=== PATIENT | male | born 1965 | race Caucasian/White ===

== ENCOUNTER 2020-09-05 11:03 | Inpatient (IN) | payer OTHER ==
[2020-09-05] MEDS ORDERED: Sodium Chloride 0.9% 1000 ML 1,000 ML IV STA (11:10)
--- NOTE | 2020-09-05 11:10 | ERPHSYRPT ---
- History of Present Illness Time Seen by Provider: 09/05/20 11:10 Source: patient Exam Limitations: no limitations Physician History: This is a morbidly obese 54-year-old white male who is a diabetic and has history of hypertension and presents with symptoms of cough, shortness of air, diarrhea, myalgias and arthralgias and was exposed to individuals with positive COVID-19 test. Patient underwent a COVID-19 test approximately 1 week ago and found out this past Tuesday that his test was positive. His symptoms have not improved. In fact patient states that his cough and shortness of air have worsened. He does not have specific chest pain or abdominal pain. He has had no vomiting episodes. Cough Quality/Degree: moderate, dry cough Possible Cause: no prior episodes Modifying Factors: Improves With: coughing, deep breath Associated Symptoms: cough, muscle aches, shortness of breath Allergies/Adverse Reactions: vancomycin Allergy (Severe, Verified 09/05/20 11:48) blisters Home Medications: Hydrochlorothiazide 25 mg [hydroDIURIL 25 MG] 25 mg PO DAILY 04/05/17 [History] Quinapril HCl [Accupril] 40 mg PO DAILY 04/05/17 [History] Aspirin 81 gm Chew [Baby Aspirin 81 mg Chew] 1 tab PO DAILY 09/05/20 [History] Nebivolol HCl [Bystolic] 1 tab PO DAILY 09/05/20 [History] Travel Risk - International Travel Have you traveled outside of the country in past 3 weeks: No - Coronavirus Screening Are you exhibiting any of the following symptoms?: Yes Symptoms: Fever, Cough: New Onset, Shortness of Breath, Headaches/Body Aches/Fatigue Close contact with a COVID-19 positive Pt in past 14-21 Days: Yes - Review of Systems Constitutional: Fever Eyes: No Symptoms Ears, Nose, & Throat: No Symptoms Respiratory: Cough, Dyspnea Cardiac: No Symptoms Abdominal/Gastrointestinal: No Symptoms Genitourinary Symptoms: No Symptoms Musculoskeletal: Arthralgias, Myalgias Skin: No Symptoms Neurological: No Symptoms Psychological: No Symptoms Endocrine: No Symptoms Hematologic/Lymphatic: No Symptoms Immunological/Allergic: No Symptoms All Other Systems: Reviewed and Negative - Past Medical History Pertinent Past Medical History: Yes Neurological History: No Pertinent History ENT History: No Pertinent History Cardiac History: Hypertension Respiratory History: No Pertinent History Endocrine Medical History: No Pertinent History Musculoskeletal History: Osteoarthritis GI Medical History: No Pertinent History History: No Pertinent History Psycho-Social History: No Pertinent History Male Reproductive Disorders: No Pertinent History Other Medical History: SX HX: MENSICUS TEAR RIGHT KNEE 12 YEARS AGO. HX OF CELLULITIS AND LYMPHEDEMA - USES CIRCAID - Past Surgical History Past Surgical History: Yes Neuro Surgical History: No Pertinent History Cardiac: Cardiac Catheterization Respiratory: No Pertinent History Gastrointestinal: No Pertinent History Genitourinary: No Pertinent History Musculoskeletal: Orthopedic Surgery Male Surgical History: No Pertinent History Other Surgical History: R meniscus repair. - Social History Smoking Status: Never smoker How long have you smoked: never Exposure to second hand smoke: No Drug Use: none - Nursing Vital Signs Nursing Vital Signs: Initial Vital Signs Temperature 99.1 F 09/05/20 11:20 Pulse Rate 81 09/05/20 11:20 Respiratory Rate 22 09/05/20 11:20 Blood Pressure 155/77 09/05/20 11:20 O2 Sat by Pulse Oximetry 85 L 09/05/20 11:20 Pain Scale Pain Intensity 5 - Physical Exam General Appearance: mild distress, alert, anxiety, obese Eye Exam: PERRL/EOMI, eyes nml inspection Ears, Nose, Throat Exam: normal ENT inspection, moist mucous membranes Neck Exam: normal inspection, non-tender, supple, full range of motion Respiratory Exam: normal breath sounds, lungs clear, respiratory distress (Mild), airway intact, No chest tenderness Cardiovascular Exam: regular rate/rhythm, normal heart sounds Gastrointestinal/Abdomen Exam: soft, normal bowel sounds, No tenderness Rectal Exam: not done Back Exam: normal inspection, normal range of motion, No CVA tenderness, No vertebral tenderness Extremity Exam: normal inspection, normal range of motion, pelvis stable Neurologic Exam: alert, oriented x 3, cooperative, 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, normal mood/affect, nml cerebellar function, nml station & gait, sensation nml Skin Exam: normal color, warm, dry Lymphatic Exam: No adenopathy SpO2 Interpretation: normal O2 Delivery: Room Air - Course Nursing assessment & vital signs reviewed: Yes EKG Interpreted by Me: RATE (77), Sinus Rhythm, NORMAL AXIS, LAFB, NORMAL INTERVALS, NORMAL QRS, Other (No comparison EKG) Ordered Tests: Active Orders 24 hr Category Date Time Status EKG-ER Only STAT Care 09/05/20 11:10 Active IV Insertion STAT Care 09/05/20 11:10 Active Isolation, Initiate & Maintain STAT Care 09/05/20 11:11 Active Pulse Oximetry (ED) STAT Care 09/05/20 11:10 Active CHEST 1 VIEW (PORTABLE) Stat Exams 09/05/20 12:46 Taken BLOOD CULTURE Stat Lab 09/05/20 11:50 Received CBC W DIFF Stat Lab 09/05/20 11:35 Completed CMP Stat Lab 09/05/20 11:35 Completed D-DIMER QUANTITATIVE Stat Lab 09/05/20 13:22 Ordered INFLUENZA A+B YULIA Stat Lab 09/05/20 11:50 Completed Lactic Acid Stat Lab 09/05/20 11:10 Completed [place] Screen Stat Lab 09/05/20 11:35 Completed TROPONIN Q3H Lab 09/05/20 11:50 Completed TROPONIN Q3H Lab 09/05/20 14:15 Ordered TROPONIN Q3H Lab 09/05/20 17:15 Ordered TROPONIN Q3H Lab 09/05/20 20:15 Ordered TROPONIN Q3H Lab 09/05/20 23:15 Ordered Transfer Order Routine Transfer 09/05/20 Ordered Medication Summary Discontinued Medications Generic Name Dose Route Start Last Admin Trade Name Freq PRN Reason Stop Dose Admin Hydrocodone Bitart/Acetaminophen 15 ml 09/05/20 12:19 09/05/20 12:32 Hydrocodone-Acetamin 2.5-108/5 Ml Solution PO 09/05/20 12:20 15 ml STAT STA Administration Hydrocodone Bitart/Acetaminophen Confirm 09/05/20 12:31 Hydrocodone-Acetamin 2.5-108/5 Ml Solution Administered 09/05/20 12:32 Dose 15 ml .ROUTE .STK-MED ONE Dexamethasone Sodium Phosphate 8 mg 09/05/20 12:19 09/05/20 12:32 Decadron 4 Mg Inj IV 09/05/20 12:20 8 mg STAT ONE Administration Dexamethasone Sodium Phosphate Confirm 09/05/20 12:31 Decadron 4 Mg Inj Administered 09/05/20 12:32 Dose 8 mg .ROUTE .STK-MED ONE Sodium Chloride 1,000 mls @ 999 mls/hr 09/05/20 11:10 09/05/20 12:43 Sodium Chloride 0.9% 1000 Ml IV 09/05/20 12:10 Infused .Q1H1M STA Infusion Sodium Chloride Confirm 09/05/20 11:16 Sodium Chloride 0.9% 1000 Ml Administered 09/05/20 11:17 Dose 1,000 mls @ .ROUTE .[facility]-MED ONE Lab/Rad Data: Laboratory Result Diagrams 09/05/20 11:35 09/05/20 11:35 Laboratory Results 09/05/20 09/05/20 09/05/20 Range/Units 11:50 11:50 11:35 WBC (4.0-10.5) K/mm3 RBC (4.1-5.6) M/mm3 Hgb (12.5-18.0) gm/dl Hct (42-50) % MCV (78-100) fl MCH (26-32) pg MCHC (32-36) g/dl RDW (11.5-14.0) % Plt Count (150-450) K/mm3 MPV (7.5-11.0) fl Gran % (36.0-66.0) % Eos # (Auto) (0-0.5) Absolute Lymphs (auto) (1.0-4.6) Absolute Monos (auto) (0.0-1.3) Lymphocytes % (24.0-44.0) % Monocytes % (0.0-12.0) % Eosinophils % (0.00-5.0) % Basophils % (0.0-0.4) % Absolute Granulocytes (1.4-6.9) Basophils # (0-0.4) Sodium (137-145) mmol/L Potassium (3.5-5.1) mmol/L Chloride (98-107) mmol/L Carbon Dioxide (22-30) mmol/L Anion Gap (5-15) MEQ/L BUN (9-20) mg/dL Creatinine (0.66-1.25) mg/dL Estimated GFR ML/MIN Glucose (74-106) mg/dL Lactic Acid (0.4-2.0) Calcium (8.4-10.2) mg/dL Total Bilirubin (0.2-1.3) mg/dL AST (17-59) U/L ALT (0-50) U/L Alkaline Phosphatase (38-126) U/L Troponin I < 0.012 (0.000-0.034) ng/mL Serum Total Protein (6.3-8.2) g/dL Albumin (3.5-5.0) g/dL Monoscreen POSITIVE (Negative) Influenza Type A Ag NEGATIVE (NEGATIVE) Influenza Type B Ag NEGATIVE (NEGATIVE) 09/05/20 09/05/20 09/05/20 Range/Units 11:35 11:35 11:10 WBC 8.8 (4.0-10.5) K/mm3 RBC 5.39 (4.1-5.6) M/mm3 Hgb 14.9 (12.5-18.0) gm/dl Hct 44.5 (42-50) % MCV 82.6 (78-100) fl MCH 27.6 (26-32) pg MCHC 33.5 (32-36) g/dl RDW 14.9 H (11.5-14.0) % Plt Count 245 (150-450) K/mm3 MPV 10.0 (7.5-11.0) fl Gran % 87.6 H (36.0-66.0) % Eos # (Auto) 0.01 (0-0.5) Absolute Lymphs (auto) 0.60 L (1.0-4.6) Absolute Monos (auto) 0.48 (0.0-1.3) Lymphocytes % 6.8 L (24.0-44.0) % Monocytes % 5.4 (0.0-12.0) % Eosinophils % 0.1 (0.00-5.0) % Basophils % 0.1 (0.0-0.4) % Absolute Granulocytes 7.74 H (1.4-6.9) Basophils # 0.01 (0-0.4) Sodium 138 (137-145) mmol/L Potassium 3.6 (3.5-5.1) mmol/L Chloride 98 (98-107) mmol/L Carbon Dioxide 32 H (22-30) mmol/L Anion Gap 11.8 (5-15) MEQ/L BUN 10 (9-20) mg/dL Creatinine 0.75 (0.66-1.25) mg/dL Estimated GFR > 60.0 ML/MIN Glucose 151 H (74-106) mg/dL Lactic Acid 1.9 (0.4-2.0) Calcium 8.9 (8.4-10.2) mg/dL Total Bilirubin 0.60 (0.2-1.3) mg/dL AST 45 (17-59) U/L ALT 31 (0-50) U/L Alkaline Phosphatase 79 (38-126) U/L Troponin I (0.000-0.034) ng/mL Serum Total Protein 7.8 (6.3-8.2) g/dL Albumin 4.3 (3.5-5.0) g/dL Monoscreen (Negative) Influenza Type A Ag (NEGATIVE) Influenza Type B Ag (NEGATIVE) - Progress Progress: improved, re-examined Air Movement: good Progress Note: 09/05/20 13:20 Chest x-ray shows bilateral bibasilar opacities Blood Culture(s) Obtained: Yes Counseled pt/family regarding: lab results, diagnosis, rad results - Departure Departure Disposition: Home Clinical Impression: Pneumonia due to COVID-19 virus, Mononucleosis, Hypoxia Condition: Fair Critical Care Time: Yes Critical Care Time(excluding separately billable procedures): Critical 30-74 mins Referrals: SUKH LYNN MD [Primary Care Provider] -
[2020-09-05] MEDS ORDERED: Sodium Chloride 0.9% 1000 ML 1,000 ML ONE ×2 (11:16→14:34)
[2020-09-05 12:08] LABS: Absolute Neutrophil Ct (ANC) 7.74 (1.4-6.9); BASOPHIL % 0.1 % (0.0-0.4); Basophil (Absolute #) 0.01 (0-0.4); Eosinophil % 0.1 % (0.00-5.0); Eosinophil (Absolute #) 0.01 (0-0.5); Hematocrit 44.5 % (42-50); Hemoglobin 14.9 gm/dl (12.5-18.0); Lymphocytes % 6.8 % (24.0-44.0); Mean Cell Volume 82.6 fl (78-100); Mean Corpuscular Hemoglobin 27.6 pg (26-32); Mean Corpuscular Hgb Concent. 33.5 g/dl (32-36); Monocyte (Absolute #) 0.48 (0.0-1.3); Monocytes % 5.4 % (0.0-12.0); Neutrophil % 87.6 % (36.0-66.0); Platelet Count 245 K/mm3 (150-450); Red Blood Count 5.39 M/mm3 (4.1-5.6); Red Cell Distribution Width 14.9 % (11.5-14.0); White Blood Count 8.8 K/mm3 (4.0-10.5)
[2020-09-05 12:14] LABS: ALBUMIN 4.3 g/dL (3.5-5.0); ALKALINE PHOSPHATASE 79 U/L (38-126); ANION GAP 11.8 MEQ/L (5-15); BLOOD UREA NITROGEN 10 mg/dL (9-20); CHLORIDE 98 mmol/L (98-107); Calcium 8.9 mg/dL (8.4-10.2); Carbon Dioxide 32 mmol/L (22-30); Creatinine 1 0.75 mg/dL (0.66-1.25); EST GLOMERULAR FILTRATION RATE > 60.0 ML/MIN; Glucose 151 mg/dL (74-106); Potassium 3.6 mmol/L (3.5-5.1); SGOT/AST 45 U/L (17-59); SGPT/ALT 31 U/L (0-50); SODIUM 138 mmol/L (137-145); Total Protein 7.8 g/dL (6.3-8.2)
[2020-09-05] MEDS ORDERED: Decadron 4 MG INJ IV ONE (12:19)
[2020-09-05] MEDS ORDERED: HYDROCODONE-ACETAMIN 2.5-108/5 ML SOLUTION PO STA (12:19)
[2020-09-05 12:30] LABS: INFLUENZA A NEGATIVE (NEGATIVE); INFLUENZA B NEGATIVE (NEGATIVE)
[2020-09-05] MEDS ORDERED: HYDROCODONE-ACETAMIN 2.5-108/5 ML SOLUTION ONE (12:31)
[2020-09-05] MEDS ORDERED: Decadron 4 MG INJ ONE (12:31)
[2020-09-05] MEDS ORDERED: TYLENOL 325 MG PO PRN (15:11)
[2020-09-05] MEDS ORDERED: HYDROCODONE-ACETAMIN 2.5-108/5 ML SOLUTION PO PRN (15:11)
[2020-09-05] MEDS ORDERED: Zofran 4 MG/2 ML VIAL IV PRN (15:11)
[2020-09-05] MEDS ORDERED: REMDESIVIR 200 MG in Sodium Chloride 0.9% 250 ML 250 ML IV ONE (16:00)
[2020-09-05] MEDS ORDERED: TYLENOL EXTRA STRENGTH 500 MG PO PRN (16:13)
[2020-09-05] MEDS ORDERED: Tussionex Pennkinetic Susp PO PRN (16:15)
[2020-09-05] MEDS ORDERED: NORCO 5/325 MG PO PRN (16:16)
--- NOTE | 2020-09-05 19:05 | XRAY ---
Indication: Fever, cough, and short of breath. Positive Covid 19. Comparison: None Portable chest demonstrates diffuse bilateral airspace disease without large effusion. Heart is not enlarged for AP portable technique. Bony thorax intact.
--- NOTE | 2020-09-05 19:14 | XRAY ---
Indication: Hypoxia, cough, diarrhea, and elevated d-dimer. Positive Covid 19. Multiple contiguous axial images obtained through the chest using 100 cc Isovue 370 contrast and PE protocol. Comparison: None There is poor opacification of the pulmonary arteries limiting evaluation of the lobar and segmental branches. No central pulmonary embolus. Heart is borderline enlarged. Aorta is normal in course and caliber. No pathologic mediastinal/hilar lymphadenopathy. Lungs demonstrates diffuse bilateral patchy bilateral airspace disease without consolidation/effusion. Bony thorax intact with mild degenerative changes throughout the spine. Limited upper abdomen demonstrates tiny gallstones/gravel. Left kidney demonstrates 3 cm exophytic soft tissue mass. Impression: 1. Pulmonary embolus evaluation limited due to suboptimal opacification. No central pulmonary embolus. 2. Diffuse bilateral airspace disease without consolidation/effusion. 3. Left renal mass worrisome for malignancy. 4. Tiny gallstones/gravel. Comment: Preliminary image of addition was made by C. No critical discrepancy.
[2020-09-05] MEDS ORDERED: Decadron 4 MG INJ IV SCH (20:00)
[2020-09-05] MEDS ORDERED: ENOXAPARIN SODIUM SQ SCH (21:00)
[2020-09-05] MEDS: Decadron 4 MG INJ IV SCH (21:43)
[2020-09-05] MEDS: Ativan 1 MG PO PRN (21:45)
[2020-09-05] MEDS: Sodium Chloride 0.9% 1000 ML 1,000 ML IV SCH (21:58)
[2020-09-06 06:25] LABS: Hematocrit 42.5 % (42-50); Hemoglobin 13.9 gm/dl (12.5-18.0); Mean Cell Volume 83.2 fl (78-100); Mean Corpuscular Hemoglobin 27.2 pg (26-32); Mean Corpuscular Hgb Concent. 32.7 g/dl (32-36); Mean Platelet Volume 9.6 fl (7.5-11.0); Platelet Count 245 K/mm3 (150-450); Red Blood Count 5.11 M/mm3 (4.1-5.6)
[2020-09-06 06:44] LABS: INR 1.24 (0.8-3.0)
[2020-09-06 07:00] LABS: BAND 1 % (0.0-2.0); Lymphocytes 10 % (24-44); Monocyte 5 % (0.0-12.0); Neutrophils 84 % (36.-66.); Platelet Estimate NORMAL (NORMAL); Total Cells Counted 100
[2020-09-06 07:11] LABS: ALBUMIN 3.9 g/dL (3.5-5.0); ALKALINE PHOSPHATASE 72 U/L (38-126); ANION GAP 10.9 MEQ/L (5-15); BLOOD UREA NITROGEN 11 mg/dL (9-20); CHLORIDE 98 mmol/L (98-107); Calcium 8.5 mg/dL (8.4-10.2); Carbon Dioxide 32 mmol/L (22-30); Creatinine 1 0.59 mg/dL (0.66-1.25); EST GLOMERULAR FILTRATION RATE > 60.0 ML/MIN; Glucose 142 mg/dL (74-106); NT PRO BNP 153 pg/mL (0-900); Potassium 3.9 mmol/L (3.5-5.1); SGOT/AST 34 U/L (17-59); SGPT/ALT 29 U/L (0-50); SODIUM 138 mmol/L (137-145); Total Protein 7.3 g/dL (6.3-8.2)
[2020-09-06] MEDS: BABY ASPIRIN 81 MG CHEW PO SCH (09:24)
[2020-09-06] MEDS: Accupril 10MG Tablet PO SCH (09:25)
[2020-09-06] MEDS: Bystolic 5 MG PO SCH (09:25)
[2020-09-06] MEDS: hydroDIURIL 25 MG PO SCH (09:25)
[2020-09-06] MEDS: Sodium Chloride 0.9% 1000 ML 1,000 ML IV SCH (09:26)
[2020-09-06] MEDS: Decadron 4 MG INJ IV SCH ×2 (09:26→22:06)
[2020-09-06] MEDS ORDERED: NON-FORMULARY ITEM (Nebivolol Hcl [Bystolic] 10 MG) PO SCH (10:00)
[2020-09-06] MEDS ORDERED: QUINAPRIL HCL 40 MG PO SCH (10:00)
[2020-09-06] MEDS: Tussionex Pennkinetic Susp PO PRN (13:48)
[2020-09-06] MEDS: REMDESIVIR 100 MG in Sodium Chloride 0.9% 100 ML IVPB 100 ML IV SCH (15:58)
[2020-09-06] MEDS: ENOXAPARIN SODIUM SQ SCH (22:06)
[2020-09-06] MEDS: Ativan 1 MG PO PRN (22:06)
[2020-09-07 07:01] LABS: INR 1.23 (0.8-3.0); PROTIME 13.9 SECONDS (8.83-12.87)
[2020-09-07 07:05] LABS: ALBUMIN 3.7 g/dL (3.5-5.0); ALKALINE PHOSPHATASE 69 U/L (38-126); ANION GAP 10.5 MEQ/L (5-15); BLOOD UREA NITROGEN 14 mg/dL (9-20); CHLORIDE 98 mmol/L (98-107); Calcium 8.7 mg/dL (8.4-10.2); Carbon Dioxide 35 mmol/L (22-30); Creatinine 1 0.64 mg/dL (0.66-1.25); EST GLOMERULAR FILTRATION RATE > 60.0 ML/MIN; Glucose 131 mg/dL (74-106); SGOT/AST 36 U/L (17-59); SGPT/ALT 31 U/L (0-50); SODIUM 139 mmol/L (137-145)
[2020-09-07] MEDS: Accupril 10MG Tablet PO SCH (09:48)
[2020-09-07] MEDS: BABY ASPIRIN 81 MG CHEW PO SCH (09:49)
[2020-09-07] MEDS: Bystolic 5 MG PO SCH (09:49)
[2020-09-07] MEDS: hydroDIURIL 25 MG PO SCH (09:49)
[2020-09-07] MEDS: Decadron 4 MG INJ IV SCH ×2 (11:21→22:15)
[2020-09-07] MEDS: Sodium Chloride 0.9% 10 ML FLUSH Syringe IV SCH ×2 (14:39→22:16)
[2020-09-07] MEDS: Tussionex Pennkinetic Susp PO PRN ×2 (14:55→22:18)
[2020-09-07] MEDS: REMDESIVIR 100 MG in Sodium Chloride 0.9% 100 ML IVPB 100 ML IV SCH (16:17)
[2020-09-07] MEDS: Ativan 1 MG PO PRN (22:15)
[2020-09-07] MEDS: ENOXAPARIN SODIUM SQ SCH (22:15)
[2020-09-08] MEDS: Sodium Chloride 0.9% 10 ML FLUSH Syringe IV SCH ×3 (05:26→21:50)
[2020-09-08 05:31] LABS: INR 1.22 (0.8-3.0); PROTIME 13.8 SECONDS (8.83-12.87)
[2020-09-08 05:39] LABS: ALBUMIN 4.2 g/dL (3.5-5.0); ALKALINE PHOSPHATASE 77 U/L (38-126); BLOOD UREA NITROGEN 17 mg/dL (9-20); CHLORIDE 95 mmol/L (98-107); Carbon Dioxide 35 mmol/L (22-30); Creatinine 1 0.68 mg/dL (0.66-1.25); EST GLOMERULAR FILTRATION RATE > 60.0 ML/MIN; Glucose 147 mg/dL (74-106); Potassium 4.3 mmol/L (3.5-5.1); SGOT/AST 50 U/L (17-59); SGPT/ALT 48 U/L (0-50); SODIUM 138 mmol/L (137-145)
--- NOTE | 2020-09-08 10:13 | HP ---
CHIEF COMPLAINT: Cough, fever, chills, leg ache. HISTORY OF PRESENT ILLNESS: The patient had pain and complaints for several days before he got an outpatient COVID test which was called back positive on Tuesday. Today is Tuesday and he is still symptomatic and getting worse. He came to the emergency room and has been admitted. Chest x-ray revealed typical COVID pneumonia. He is a nonsmoker. He has hypertension, obesity. He has had no travel out of the [facility] recently. No exposure to anyone he knew has COVID. His COVID test was positive I believe seven days ago now. The patient is with three kids. 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 MEDICATIONS: Hydrocodone for pain, aspirin 81 mg q.d., Bystolic 10 q.d., hydrochlorothiazide 25, Accupril 40 q.d. ALLERGIES: VANCOMYCIN. REVIEW OF SYSTEMS: HEENT: He is not hard of hearing. CHEST: Short of breath at rest. CVS: No exertional chest pain, palpitations, coronary artery disease. ABDOMEN: No nausea or vomiting. Sharp pain left side when he coughs. It started after hard cough. No diarrhea. EXTREMITIES: He has had surgery on his right knee last year due to meniscal tear. PHYSICAL EXAMINATION: The patient is a large, pleasant, healthy looking man in mild respiratory distress. HEENT: Pupils equal and reactive to light. NECK: Supple without adenopathy. CHEST: Clear. CVS: No murmurs or gallops. ABDOMEN: Obese, tender mid abdomen. EXTREMITIES: Scar over right knee. Trace edema bilateral. LAB DATA AND TESTS: The patient's white count was 8, hemoglobin 15. Electrolytes were normal. Chest x-ray showed bilateral bibasilar opacities. Blood cultures were obtained. Liver enzymes were negative. Influenza negative. [place] screen was positive. I believe that is probably an interaction or false positive. IMPRESSION: The patient has typical COVID pneumonia. PLAN: Will start him on Decadron, Tussionex cough medicine, continue his normal medicines. PROGNOSIS: Good.
[2020-09-08] MEDS: Accupril 10MG Tablet PO SCH (10:23)
[2020-09-08] MEDS: Decadron 4 MG INJ IV SCH ×2 (10:24→21:41)
[2020-09-08] MEDS: hydroDIURIL 25 MG PO SCH (10:24)
[2020-09-08] MEDS: Bystolic 5 MG PO SCH (10:24)
[2020-09-08] MEDS: BABY ASPIRIN 81 MG CHEW PO SCH (10:24)
[2020-09-08] MEDS ORDERED: SENOKOT 8.6 MG PO ONE (10:30)
[2020-09-08] MEDS ORDERED: Lasix 20 MG/2 ML IV ONE (10:30)
[2020-09-08] MEDS ORDERED: Sodium Chloride 0.9% 500 ML 500 ML IV PRN (10:31)
[2020-09-08 11:38] LABS: ABO TYPING O; Antibody Screen NEGATIVE (NEGATIVE); RH TYPING POSITIVE
--- NOTE | 2020-09-08 11:42 | HP ---
CHIEF COMPLAINT: Can't breathe, chest pain, abdominal pain. HISTORY OF PRESENT ILLNESS: The patient has been exposed to COVID-19 and his family. COVID test maybe five days ago was positive. He called several days before admission. His chest was hurting and he was coughing a tremendous amount. He was short of breath and he was brought in for evaluation. He said the chest pain right now is a sharp pain in the left upper quadrant after having a bad coughing spells. He said he has had some low grade fever. He had some nausea, vomiting, aching all over. He has not traveled out of the country. He does not smoke. MEDICATIONS: Hydrochlorothiazide 25 q.d., Accupril 40 q.d., aspirin 81 q.d., Bystolic 1 q.d. ALLERGIES: VANCOMYCIN. REVIEW OF SYSTEMS: CONSTITUTIONAL: Fever, malaise. HEENT: Eyes - No problems. Ears - Hears well. RESPIRATORY: Cough, shortness of breath, sharp upper abdominal pain. CVS: Mild hypertension for numerous years. ABDOMEN: Some sharp pain. No diarrhea. No vomiting. MUSCULOSKELETAL: He had torn meniscus in the right knee 12 years ago. He has cellulitis and lymphedema chronically. SOCIAL HISTORY: The patient is , has a daughter and sons who have grown up. 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 Nonsmoker. He drinks occasional beer. PHYSICAL EXAMINATION: The patient is alert, orientated, strong, sturdy looking gentleman who is cooperative and pleasant. VITAL SIGNS: Temperature 99F, pulse 80, respirations 20, blood pressure 155/77. O2 saturation on room air 85%. HEENT: Pupils equal and reactive to light. NECK: Supple without adenopathy. CHEST: Clear. CVS: No murmurs or gallops. ABDOMEN: Obese. No masses or organomegaly. There is some tenderness over the left rib cage. BACK: Normal. NEUROLOGICAL: The patient moves all extremities normal. He has no loss of taste. SKIN: [place]. LAB DATA AND TESTS: White count was normal. Hemoglobin 18.9, PLT count 245,000. Electrolytes were normal. Creatinine and BUN were normal. [place] screen was positive but I think that is an artifact. It would be very unusual for a 52 year old man to have mono. It could be positive due to cross reactivity with the COVID testing. Chest x-ray did show some bilateral infiltrate typical for COVID, not striking. After a couple liters of oxygen his O2 saturation went up in the 90's. His temperature was 100.1F in the emergency room. IMPRESSION: 1) COVID pneumonia. 2) Hypoxia. 3) Cough. 4) Arthralgia. 5) Myalgia. PLAN: The patient will be treated with Decadron, Remdesivir, oxygen, supportive fluids. PROGNOSIS: Mathis to be good.
[2020-09-08] MEDS: REMDESIVIR 100 MG in Sodium Chloride 0.9% 100 ML IVPB 100 ML IV SCH (16:13)
[2020-09-08] MEDS ORDERED: Sodium Chloride 0.9% 500 ML 500 ML IV ONE (20:46)
[2020-09-08] MEDS: Tussionex Pennkinetic Susp PO PRN (21:41)
[2020-09-08] MEDS: Ativan 1 MG PO PRN (21:41)
[2020-09-08] MEDS: ENOXAPARIN SODIUM SQ SCH (21:41)
[2020-09-09 05:38] LABS: INR 1.23 (0.8-3.0); PROTIME 13.9 SECONDS (8.83-12.87)
[2020-09-09 05:43] LABS: ALBUMIN 3.8 g/dL (3.5-5.0); ALKALINE PHOSPHATASE 78 U/L (38-126); BLOOD UREA NITROGEN 18 mg/dL (9-20); CHLORIDE 94 mmol/L (98-107); Carbon Dioxide 40 mmol/L (22-30); Creatinine 1 0.71 mg/dL (0.66-1.25); EST GLOMERULAR FILTRATION RATE > 60.0 ML/MIN; Glucose 135 mg/dL (74-106); Potassium 4.6 mmol/L (3.5-5.1); SGOT/AST 66 U/L (17-59); SGPT/ALT 87 U/L (0-50); SODIUM 137 mmol/L (137-145); Total Protein 7.4 g/dL (6.3-8.2)
[2020-09-09] MEDS: VENTOLIN COMMON CANISTER IH SCH ×4 (08:20→19:00)
[2020-09-09] MEDS: BABY ASPIRIN 81 MG CHEW PO SCH (09:46)
[2020-09-09] MEDS: Accupril 10MG Tablet PO SCH (09:46)
[2020-09-09] MEDS: Decadron 4 MG INJ IV SCH ×2 (09:47→21:52)
[2020-09-09] MEDS: Bystolic 5 MG PO SCH (09:47)
[2020-09-09] MEDS: hydroDIURIL 25 MG PO SCH (09:48)
[2020-09-09 12:18] LABS: A-aADO2 243; ABG HEMOGLOBIN 15.4; ABG POTASSIUM 3.6 (3.5-5.1); ARTERIAL BLD GAS O2 SATURATION 92.6 % (95-100); ARTERIAL BLOOD GAS BASE EXCESS 10.5 (-2.0-2.0); ARTERIAL BLOOD GAS FIO2 50 %; ARTERIAL BLOOD GAS PCO2 45 mmHg (35-45); ARTERIAL BLOOD GAS PO2 57 mmHg (75-100); CARBOXYHEMOGLOBIN 1.9 % THgb (0.0-6.9); HCO3- 35.1 (22-28); HGB O2 SAT 89.8 g/dF (94-100); Methhemoglobin 1.1 % (1.4-1.5); paO2 pAO1 0.19
[2020-09-09 12:19] LABS: ABG SITE LEFT RADIAL; ALLEN TEST OK? yes
--- NOTE | 2020-09-09 12:50 | XRAY ---
Indication: Low oxygen saturation. Positive Covid 19. Portable chest demonstrates grossly stable diffuse bilateral airspace disease without consolidation/large effusion. Heart borderline enlarged. No new cardiopulmonary abnormalities.
[2020-09-09 13:41] LABS: Hematocrit 45.4 % (42-50); Hemoglobin 14.4 gm/dl (12.5-18.0); Mean Cell Volume 85.5 fl (78-100); Mean Corpuscular Hemoglobin 27.1 pg (26-32); Mean Corpuscular Hgb Concent. 31.7 g/dl (32-36); Mean Platelet Volume 10.7 fl (7.5-11.0); Platelet Count 272 K/mm3 (150-450); Red Blood Count 5.31 M/mm3 (4.1-5.6); White Blood Count 10.4 K/mm3 (4.0-10.5)
[2020-09-09 14:29] LABS: ANISOCYTOSIS 1+; ATYPICAL LYMPHS 1 %; Lymphocytes 10 % (24-44); Monocyte 5 % (0.0-12.0); Neutrophils 84 % (36.-66.); Platelet Estimate NORMAL (NORMAL); Total Cells Counted 100
--- NOTE | 2020-09-09 15:34 | PROG NOTE ---
CHIEF COMPLAINT: Shortness of breath. HISTORY: The patient was admitted on 09/05/2020. He had bilateral COVID pneumonia on chest x-ray. His white count was normal. D-dimer was elevated at 1,000. He has got a productive cough now. We have had to increase his O2 up to 8. He is visibly short of breath at rest although he is eating and talking fairly well. PHYSICAL EXAMINATION: CHEST: Crackles bilateral. CVS: Distant and regular. ABDOMEN: Obese. No tenderness. EXTREMITIES: No edema. The situation is not improving and has actually gotten worse again. He has got a chest x-ray which showed the COVID is probably increased bilaterally. CBC was normal. Blood gas showed PaO2 90, pCO2 was lower at 38 and pH of 7.4 not on the chart at the present time. So basically he is starting to blow off some CO2 and hyperventilate to keep his O2 at a reasonable level. I am going to get a consult from Dr. Garcia, [employer], and see the specialist. We will probably put him on high flow oxygen and maybe BiPAP if needed. He is at least comfortable at the present time. His mother who is several doors down has improved although her health status is worse. His step-father is home with this and the rest of the family has been uninvolved. IMPRESSION: Bilateral COVID pneumonia, conditioning worsening.
[2020-09-09] MEDS: REMDESIVIR 100 MG in Sodium Chloride 0.9% 100 ML IVPB 100 ML IV SCH (16:20)
[2020-09-09] MEDS: Sodium Chloride 0.9% 10 ML FLUSH Syringe IV SCH ×3 (16:54→21:52)
[2020-09-09] MEDS: Tussionex Pennkinetic Susp PO PRN (21:52)
[2020-09-09] MEDS: ENOXAPARIN SODIUM SQ SCH (21:52)
[2020-09-09] MEDS: Ativan 1 MG PO PRN (21:53)
[2020-09-10 05:38] LABS: ALBUMIN 3.9 g/dL (3.5-5.0); ALKALINE PHOSPHATASE 83 U/L (38-126); ANION GAP 11.2 MEQ/L (5-15); BLOOD UREA NITROGEN 18 mg/dL (9-20); CHLORIDE 97 mmol/L (98-107); Calcium 8.9 mg/dL (8.4-10.2); Carbon Dioxide 33 mmol/L (22-30); Creatinine 1 0.71 mg/dL (0.66-1.25); EST GLOMERULAR FILTRATION RATE > 60.0 ML/MIN; Glucose 142 mg/dL (74-106); SGOT/AST 48 U/L (17-59); SGPT/ALT 84 U/L (0-50); SODIUM 137 mmol/L (137-145); Total Protein 7.5 g/dL (6.3-8.2)
[2020-09-10] MEDS: Sodium Chloride 0.9% 10 ML FLUSH Syringe IV SCH ×3 (06:54→22:07)
[2020-09-10] MEDS: VENTOLIN COMMON CANISTER IH SCH ×4 (06:55→17:45)
[2020-09-10 07:10] LABS: A-aADO2 305; ABG HEMOGLOBIN 15.7; ABG POTASSIUM 4.2 (3.5-5.1); ARTERIAL BLD GAS O2 SATURATION 95.2 % (95-100); ARTERIAL BLOOD GAS BASE EXCESS 11.2 (-2.0-2.0); ARTERIAL BLOOD GAS FIO2 60 %; ARTERIAL BLOOD GAS PCO2 46 mmHg (35-45); ARTERIAL BLOOD GAS PO2 65 mmHg (75-100); CARBOXYHEMOGLOBIN 1.8 % THgb (0.0-6.9); HCO3- 35.9 (22-28); HGB O2 SAT 92.4 g/dF (94-100); Methhemoglobin 1.1 % (1.4-1.5); paO2 pAO1 0.18
[2020-09-10 07:11] LABS: ABG SITE RIGHT RADIAL; ALLEN TEST OK? YES
[2020-09-10] MEDS: Decadron 4 MG INJ IV SCH ×2 (09:56→22:07)
[2020-09-10] MEDS: Accupril 10MG Tablet PO SCH (09:56)
[2020-09-10] MEDS: BABY ASPIRIN 81 MG CHEW PO SCH (09:56)
[2020-09-10] MEDS: Bystolic 5 MG PO SCH (09:56)
[2020-09-10] MEDS: hydroDIURIL 25 MG PO SCH (09:57)
--- NOTE | 2020-09-10 12:44 | PROG NOTE ---
CHIEF COMPLAINT: Shortness of breath. HISTORY: The patient was diagnosed with COVID and brought to the emergency room on 09/05/2020. He has continued to deteriorate until he is now on BiPAP. He continues to keep his O2 saturations at 95% overnight. He is short of breath on exertion. He sits up all the time now. He has some low abdominal pain. He is coughing up stuff, occasionally has chest pain from coughing. No high fever or chills. He is alert, orientated and stoic. His mother has gone home from the unit after having COVID for a long time. Yesterday he had a chest x-ray which showed COVID pneumonia a little bit worse. His blood gas was 7.5, pCO2 46 and pO2 65. I believe that was on 6 liters and then we put him on high flow oxygen and followed with the BiPAP last night. His electrolytes came down to normal. His hemoglobin yesterday was 14 and white count 10. He is anticoagulated. PHYSICAL EXAMINATION: CHEST: Few crackles at the base. CVS: Regular rate about 100. LAB DATA AND TESTS: Chest x-ray on admission stable diffuse bilateral airspace. IMPRESSION: The patient has COVID pneumonia marked, slightly deteriorating. I talked to Dr. Garcia, Pulmonology, and he is going to see him. At this time nothing else needs to be done. Hopefully he is going to stabilize here and finally get better. The patient has got 4 of Decadron IV q12h. He has had Remdesivir for five days and he is getting it the fifth day, I believe, and he has had 1 liter of plasma.
[2020-09-10] MEDS: ENOXAPARIN SODIUM SQ SCH (22:08)
[2020-09-10] MEDS: Tussionex Pennkinetic Susp PO PRN (22:09)
[2020-09-10] MEDS: Ativan 1 MG PO PRN (22:09)
[2020-09-11] MEDS: VENTOLIN COMMON CANISTER IH SCH ×4 (05:29→17:40)
[2020-09-11] MEDS: Sodium Chloride 0.9% 10 ML FLUSH Syringe IV SCH ×3 (06:40→22:01)
--- NOTE | 2020-09-11 08:21 | CONS ---
CONSULT DATE: 09/10/2020 HISTORY: Blair Jones is a 54 year old male without any significant past medical or surgical history, who has been hospitalized with symptoms of COVID that started about three days prior to . The patient had tested positive and was treated with Remdesivir along with convalescent plasma. He has unfortunately continued to get progressively a little bit more hypoxic. Laboratory tests including blood gases drawn showed respiratory alkalosis from hyperventilation with CO2 of 65 this morning on high flow. At the time of my evaluation the patient is on high flow oxygen. He does report clinically feeling somewhat better. He has nonproductive cough. He denies any chest pain or any other pulmonary problems. The patient had been in good health before this admission and was not on any prescription medication. PAST MEDICAL HISTORY: Negative. PAST SURGICAL HISTORY: Negative. PERSONAL AND SOCIAL HISTORY: Nonfocal. MEDICATIONS: Home and current medications are reviewed. ALLERGIES: VANCOMYCIN. PHYSICAL EXAMINATION: This is a middle aged male who appears mildly tachypneic, able to carry out conversation despite hypoxia. Vital signs noted. HEENT: Normocephalic. Oral exam revealed small oropharynx. NECK: Supple, short. CVS: First and second heart sounds are normal, regular, rhythmic. RESPIRATORY: Shows significantly diminished breath sounds, crackles heard. ABDOMEN: Obese. EXTREMITIES: No significant edema is noted. LABORATORY DATA AND TESTS: White count 10.4, hemoglobin 14.4, hematocrit 45, PLT 272,000. Sodium 137, potassium 4.0, chloride 97, bicarb 33, BUN 18, creatinine 0.7, glucose 142. ASSESSMENT: This is a 54 year old male admitted with: 1) Acute hypoxic respiratory failure. 2) COVID-19 positive status post plasma and Remdesivir therapy. 3) Bilateral pneumonia from COVID-19. 4) Obesity. RECOMMENDATIONS: 1) Medications were reviewed. He has been continued on Dexamethasone along with deep venous thrombosis prophylaxis. Bystolic for hypertension along with Accupril. The patient has completed convalescent plasma and Remdesivir therapy. 2) Continue close cardiopulmonary monitoring. The patient will benefit from alternating BiPAP with high flow oxygen, attempt to keep saturations at 90-92%, wean supplemental oxygen as tolerated. 3) Follow up chest x-ray. If clinical/radiologic improvement is not noted the patient may require intubation although will attempt to avoid this as much as possible. Condition is critical and prognosis remains guarded. I will be available to assist with this patient as needed.
[2020-09-11] MEDS: Accupril 10MG Tablet PO SCH (09:40)
[2020-09-11] MEDS: hydroDIURIL 25 MG PO SCH (09:40)
[2020-09-11] MEDS: Bystolic 5 MG PO SCH (09:40)
[2020-09-11] MEDS: BABY ASPIRIN 81 MG CHEW PO SCH (09:40)
[2020-09-11] MEDS: Decadron 4 MG INJ IV SCH ×2 (09:40→22:00)
[2020-09-11] MEDS: Tussionex Pennkinetic Susp PO PRN (22:00)
[2020-09-11] MEDS: Ativan 1 MG PO PRN (22:00)
[2020-09-11] MEDS: ENOXAPARIN SODIUM SQ SCH (22:00)
[2020-09-12] MEDS: VENTOLIN COMMON CANISTER IH SCH ×4 (05:50→17:55)
[2020-09-12] MEDS: Sodium Chloride 0.9% 10 ML FLUSH Syringe IV SCH ×3 (06:04→23:23)
--- NOTE | 2020-09-12 09:24 | PROG NOTE ---
DATE: 09/12/2020 CHIEF COMPLAINT: A little short of breath, feels good, wants to go home. On examination his chest is clear to auscultation today. He is moving air much better. He slept two to three hours at a time last night which is an improvement. His O2 is staying up in the 90's on high flow and will try to wean him off that today. IMPRESSION: 1) COVID pneumonia. 2) Obesity. He is much improved.
[2020-09-12] MEDS: BABY ASPIRIN 81 MG CHEW PO SCH (09:39)
[2020-09-12] MEDS: Decadron 4 MG INJ IV SCH ×2 (09:39→23:22)
[2020-09-12] MEDS: hydroDIURIL 25 MG PO SCH (09:39)
[2020-09-12] MEDS: Bystolic 5 MG PO SCH (09:39)
[2020-09-12] MEDS: Accupril 10MG Tablet PO SCH (09:39)
[2020-09-12] MEDS: ENOXAPARIN SODIUM SQ SCH (23:22)
[2020-09-12] MEDS: Ativan 1 MG PO PRN (23:45)
[2020-09-12] MEDS: Tussionex Pennkinetic Susp PO PRN (23:45)
[2020-09-13 06:03] LABS: Hematocrit 47.1 % (42-50); Mean Cell Volume 84.3 fl (78-100); Mean Corpuscular Hemoglobin 26.8 pg (26-32); Mean Corpuscular Hgb Concent. 31.8 g/dl (32-36); Mean Platelet Volume 9.6 fl (7.5-11.0); Platelet Count 325 K/mm3 (150-450); Red Blood Count 5.59 M/mm3 (4.1-5.6); Red Cell Distribution Width 14.9 % (11.5-14.0); White Blood Count 10.7 K/mm3 (4.0-10.5)
[2020-09-13 06:20] LABS: ALBUMIN 3.7 g/dL (3.5-5.0); ALKALINE PHOSPHATASE 83 U/L (38-126); BLOOD UREA NITROGEN 20 mg/dL (9-20); CHLORIDE 96 mmol/L (98-107); Calcium 9.1 mg/dL (8.4-10.2); Carbon Dioxide 37 mmol/L (22-30); Creatinine 1 0.85 mg/dL (0.66-1.25); EST GLOMERULAR FILTRATION RATE > 60.0 ML/MIN; Glucose 139 mg/dL (74-106); Potassium 5.2 mmol/L (3.5-5.1); SGOT/AST 32 U/L (17-59); SGPT/ALT 53 U/L (0-50); SODIUM 137 mmol/L (137-145); Total Protein 7.1 g/dL (6.3-8.2)
[2020-09-13] MEDS: Sodium Chloride 0.9% 10 ML FLUSH Syringe IV SCH (06:52)
[2020-09-13] MEDS: VENTOLIN COMMON CANISTER IH SCH ×2 (08:36→11:42)
[2020-09-13] MEDS: Sodium Chloride 0.9% 1000 ML 1,000 ML IV SCH (08:44)
[2020-09-13] MEDS: hydroDIURIL 25 MG PO SCH (08:56)
[2020-09-13] MEDS: Accupril 10MG Tablet PO SCH (08:56)
[2020-09-13] MEDS: BABY ASPIRIN 81 MG CHEW PO SCH (08:57)
[2020-09-13] MEDS: Bystolic 5 MG PO SCH (08:57)
[2020-09-13] MEDS: Decadron 4 MG INJ IV SCH (08:58)
[2020-09-13 11:43] VITALS: BP 126/73
[2020-09-13 12:41] VITALS: PULSE 68; O2SAT 91
== END 2020-09-13 13:30 | disposition home or self-care (01) | DRG 177 ==
LOC: ED 11:03 → MED SURG 15:01
PROVIDERS: ADMIT Family Medicine; ATTEND Family Medicine
DX: U07.1 COVID-19 (principal); J12.89 Other viral pneumonia; J96.01 Acute respiratory failure with hypoxia; E87.3 Alkalosis; I10 Essential (primary) hypertension; E11.9 Type 2 diabetes mellitus without complications; R19.7 Diarrhea, unspecified; M79.10 Myalgia, unspecified site; R05 Cough; R51.9 Headache, unspecified; B27.90 Infectious mononucleosis, unspecified without complication; E66.9 Obesity, unspecified; Z79.899 Other long term (current) drug therapy
CPT/HCPCS: 36000; 36415; 36430; 36600; 71045; 71260; 80053; 82375; 82803; 83605; 83880; 84484; 85025; 85027; 85379; 85610; 86308; 86850; 86900; 86901; 86931; 87040; 87400; 87651; 93005; 94640; 94760; 94762; 96360; 96374; 99284; 99291; J1100; J1650; J1940; P9017; A9270-GY

== ENCOUNTER 2024-09-12 07:50 | Emergency (ER) | payer OTHER ==
[2024-09-12 08:29] VITALS: TEMP 98.6
--- NOTE | 2024-09-12 09:00 | ERPHSYRPT ---
- History of Present Illness Time Seen by Provider: 09/12/24 08:19 Source: patient Exam Limitations: no limitations Patient Subjective Stated Complaint: Patient c/o fever and chills after his last infusion of antibiotics on 09/07/24. Patients states he was running a fever for days and started to feel better on Tuesday. Patient went for his routine weekly labs on 09/10/24. PICC line used for labs that day and patient began having chills and feeling bad on the way home from having his labs completed that day. Patient having fever and chills after the last 2 times his PICC line was used. Triage Nursing Assessment: Patient ambulated back to ER. He is alert and oriented. He is clammy. Dressing to PICC line in right upper arm C/D/I. Current temperature 98.6 oral. Physician History: 58 years old male with history of right total knee arthroplasty 4 years ago, chronic lymphedema right lower extremity, hypertension who had infected right knee which was flushed out with antibiotic seeds placement in the knee almost 6 weeks ago at [facility] followed by IV antibiotics through PICC line was feeling fine until 5 days ago when he started to have chills and fever. Fever resolved after day and has PICC line changed 2 days ago with chills again. Patient has not been taking antibiotics since then. Patient has outpatient COVID flu and mono tested which are negative. Currently he is afebrile. Has ca lled his primary orthopedic surgeon and was recommended to have lab work done. Denies any swelling around the knee. Does not have any redness around the knee and is able to ambulate with a cane as usual. No difficulty breathing or chest pain reported. Allergies/Adverse Reactions: vancomycin Allergy (Severe, Verified 09/12/24 08:13) blisters Home Medications: Hydrochlorothiazide 25 mg [hydroDIURIL 25 MG] 25 mg PO DAILY 04/05/17 [History] Quinapril HCl [Accupril] 40 mg PO DAILY 04/05/17 [History] Aspirin 81 gm Chew [Baby Aspirin 81 mg Chew] 1 tab PO DAILY 09/05/20 [History] Nebivolol HCl [Bystolic] 10 mg PO DAILY 09/05/20 [History] Benzonatate 200 mg PO TID 09/20/22 [History] Hydrocodone/Acetaminophen [Hydrocodone-Acetamin 10-325 mg] 1 tab PO BID PRN PRN 09/20/22 [History] Cefazolin Sodium in 0.9 % NaCl [Cefazolin 3 G/100 ml-0.9% NaCl] 3 gm IV DAILY 09/10/24 [History] Hx Tetanus, Diphtheria Vaccination/Date Given: Yes Hx Influenza Vaccination/Date Given: Yes Hx Pneumococcal Vaccination/Date Given: Yes Immunizations Up to Date: Yes Travel Risk - International Travel Have you traveled outside of the country in past 3 weeks: No - Emerging Infectious Disease Are you exhibiting symptoms associated with any current EIDs: Yes Symptoms: Headaches/Body Aches/ - Review of Systems Constitutional: Fever, Chills, Fatigue Ears, Nose, & Throat: No Symptoms Respiratory: No Symptoms Cardiac: No Symptoms Abdominal/Gastrointestinal: No Symptoms Genitourinary Symptoms: No Symptoms Musculoskeletal: Arthralgias, Joint Pain Skin: No Symptoms Neurological: No Symptoms Endocrine: No Symptoms Hematologic/Lymphatic: No Symptoms - Past Medical History Pertinent Past Medical History: Yes Neurological History: No Pertinent History ENT History: No Pertinent History Cardiac History: Hypertension Respiratory History: Other Endocrine Medical History: Other Musculoskeletal History: Osteoarthritis GI Medical History: No Pertinent History History: Kidney Cancer Psycho-Social History: No Pertinent History Male Reproductive Disorders: No Pertinent History Other Medical History: R TKA 2020, KIDNEY CA. - Past Surgical History Past Surgical History: Yes Neuro Surgical History: No Pertinent History Cardiac: Cardiac Catheterization Respiratory: No Pertinent History Gastrointestinal: No Pertinent History Genitourinary: Kidney Surgery Musculoskeletal: Orthopedic Surgery Male Surgical History: No Pertinent History Other Surgical History: R meniscus repair, cancer removed on left kidney, right knee replaced - Social History Smoking Status: Never smoker How long have you smoked: never Exposure to second hand smoke: No Drug Use: none Patient Lives Alone: No - Social Determinants of Health Will the patient participate in the screening: Yes Do you worry about a steady place to live?: No Do you have any problems with any of the following?: No known problems In the past 12 months,have you had to go without utilities?: No Transportation Issues: No Has anyone in your support network made you feel unsafe?: No Have you or anyone in your house had to go without enough: No - Nursing Vital Signs Nursing Vital Signs: Initial Vital Signs Temperature 98.6 F 09/12/24 08:15 Pulse Rate 69 09/12/24 08:15 Respiratory Rate 18 09/12/24 08:15 Blood Pressure 157/81 09/12/24 08:15 O2 Sat by Pulse Oximetry 92 L 09/12/24 08:15 Pain Scale Pain Intensity 0 - Physical Exam General Appearance: no apparent distress Eye Exam: PERRL/EOMI Ears, Nose, Throat Exam: normal ENT inspection, pharynx normal Neck Exam: normal inspection, full range of motion Respiratory Exam: normal breath sounds, lungs clear Cardiovascular Exam: regular rate/rhythm, normal heart sounds Gastrointestinal/Abdomen Exam: soft, normal bowel sounds Extremity Exam: normal range of motion Neurologic Exam: alert, oriented x 3, cooperative Skin Exam: normal color SpO2 Interpretation: normal SpO2: 92 O2 Delivery: Room Air Ordered Tests: Active Orders 24 hr Category Date Time Status CHEST 1 VIEW (PORTABLE) Stat Exams 09/12/24 08:49 Completed BLOOD CULTURE Stat Lab 09/12/24 09:13 Received CBC W DIFF Stat Lab 09/12/24 09:05 Completed CMP Stat Lab 09/12/24 09:05 Completed CULTURE,URINE Stat Lab 09/12/24 12:33 Received Lactic Acid Stat Lab 09/12/24 09:20 Completed Manual Differential NC Stat Lab 09/12/24 09:05 Completed PROCALCITONIN Stat Lab 09/12/24 09:05 Completed SED RATE [Erythrocyte Sedimentation Rate] Stat Lab 09/12/24 09:05 Completed UA W/RFX UR CULTURE Stat Lab 09/12/24 12:33 Completed Medication Summary Discontinued Medications Generic Name Dose Route Start Last Admin Trade Name Sushila PRN Reason Stop Dose Admin Azithromycin 500 mg in 250 mls @ 250 mls/hr 09/12/24 12:59 09/12/24 13:59 Zithromax 500 Mg/ 250 Ml Nacl Premix IV 09/12/24 13:58 250 mls/hr STAT STA 250 mls/hr Administration Ceftriaxone Sodium 2 gm in 100 mls @ 200 mls/hr 09/12/24 12:59 09/12/24 14:00 Rocephin 2 Gm/100 Ml Nacl IV 09/12/24 13:28 Infused STAT ONE Infusion Ceftriaxone Sodium Confirm 09/12/24 13:14 Rocephin 2 Gm/100 Ml Nacl Administered 09/12/24 13:15 Dose 2 gm in 100 mls @ ud IV .STK-MED ONE Azithromycin Confirm 09/12/24 13:50 Zithromax 500 Mg/ 250 Ml Nacl Premix Administered 09/12/24 13:51 Dose 500 mg in 250 mls @ ud IV .STK-MED ONE Lab/Rad Data: Laboratory Result Diagrams 09/12/24 09:05 09/12/24 09:05 Laboratory Results 09/12/24 09/12/24 09/12/24 Range/Units 12:33 09:20 09:05 WBC (4.23-9.07) x10^3/uL RBC (4.63-6.08) x10^6/uL Hgb (13.7-17.5) g/dL Hct (40.1-51.0) % MCV (79.0-92.2) fL MCH (25.7-32.2) pg MCHC (32.3-36.5) g/dL RDW (11.6-14.4) % Plt Count (163-337) x10^3/uL MPV (9.4-12.4) fL Segmented Neutrophils (34.0-67.9) % Lymphocytes (Manual) (21.8-53.1) % Monocytes (Manual) (5.3-12.2) % Eosinophils (Manual) (0.8-7.0) % Metamyelocytes % Platelet Estimate (NORMAL) RBC Morphology ESR 71 H (0-15) mm/hr Sodium (135-145) mmol/L Potassium (3.5-5.1) mmol/L Chloride (98-107) mmol/L Carbon Dioxide (22-30) mmol/L Anion Gap (5-15) MEQ/L BUN (9-20) mg/dL Creatinine (0.66-1.25) mg/dL Estimated GFR ML/MIN Glucose (74-106) mg/dL Lactic Acid 1.3 (0.4-2.0) Calcium (8.4-10.2) mg/dL Total Bilirubin (0.2-1.3) mg/dL AST (17-59) U/L ALT (0-50) U/L Alkaline Phosphatase (38-126) U/L Serum Total Protein (6.3-8.2) g/dL Albumin (3.5-5.0) g/dL Procalcitonin (0.030-0.080) ng/mL Urine Color Yellow (Yellow) Urine Appearance Cloudy A (Clear) Urine pH 6.0 (4.6-8.0) Ur Specific Maiden 1.020 (1.005-1.030) Urine Protein 100 A (Negative) Urine Glucose (UA) Negative (Negative) mg/dL Urine Ketones Negative (Negative) Urine Blood Small A (Negative) Urine Nitrite Positive A (Negative) Urine Bilirubin Negative (Negative) Urine Urobilinogen 1.0 A (0.2) mg/dL Ur Leukocyte Esterase Moderate A (Negative) U Hyaline Cast (Auto) NONE SEEN (0-2) /LPF Urine Microscopic RBC 6-10 A (0-5) /HPF Urine Microscopic WBC >100 A (0-5) /HPF Ur Epithelial Cells None Seen (None Seen) /HPF Urine Bacteria Many A (None Seen) /HPF Urine Culture Reflexed YES (NO) 09/12/24 09/12/24 09/12/24 Range/Units 09:05 09:05 09:05 WBC 9.4 H (4.23-9.07) x10^3/uL RBC 4.77 (4.63-6.08) x10^6/uL Hgb 13.0 L (13.7-17.5) g/dL Hct 39.3 L (40.1-51.0) % MCV 82.4 (79.0-92.2) fL MCH 27.3 (25.7-32.2) pg MCHC 33.1 (32.3-36.5) g/dL RDW 14.6 H (11.6-14.4) % Plt Count 224 (163-337) x10^3/uL MPV 9.7 (9.4-12.4) fL Segmented Neutrophils 84 H (34.0-67.9) % Lymphocytes (Manual) 9 L (21.8-53.1) % Monocytes (Manual) 5 L (5.3-12.2) % Eosinophils (Manual) 1 (0.8-7.0) % Metamyelocytes 1 % Platelet Estimate NORMAL (NORMAL) RBC Morphology NORMAL ESR (0-15) mm/hr Sodium 140 (135-145) mmol/L Potassium 3.8 (3.5-5.1) mmol/L Chloride 103 (98-107) mmol/L Carbon Dioxide 27 (22-30) mmol/L Anion Gap 12.6 (5-15) MEQ/L BUN 10 (9-20) mg/dL Creatinine 0.73 (0.66-1.25) mg/dL Estimated GFR 106.8 ML/MIN Glucose 105 (74-106) mg/dL Lactic Acid (0.4-2.0) Calcium 9.0 (8.4-10.2) mg/dL Total Bilirubin 0.50 (0.2-1.3) mg/dL AST 29 (17-59) U/L ALT 23 (0-50) U/L Alkaline Phosphatase 90 (38-126) U/L Serum Total Protein 7.1 (6.3-8.2) g/dL Albumin 3.9 (3.5-5.0) g/dL Procalcitonin 5.020 H* (0.030-0.080) ng/mL Urine Color (Yellow) Urine Appearance (Clear) Urine pH (4.6-8.0) Ur Specific Maiden (1.005-1.030) Urine Protein (Negative) Urine Glucose (UA) (Negative) mg/dL Urine Ketones (Negative) Urine Blood (Negative) Urine Nitrite (Negative) Urine Bilirubin (Negative) Urine Urobilinogen (0.2) mg/dL Ur Leukocyte Esterase (Negative) U Hyaline Cast (Auto) (0-2) /LPF Urine Microscopic RBC (0-5) /HPF Urine Microscopic WBC (0-5) /HPF Ur Epithelial Cells (None Seen) /HPF Urine Bacteria (None Seen) /HPF Urine Culture Reflexed (NO) - Progress Progress: unchanged Progress Note: 09/12/24 14:03 58 years old with history of right knee arthroplasty 4 years ago with septic arthritis 6-week ago status post antibiotic beads placement on IV antibiotics with some chills and fever lately with leukopenia 1.9 on 09/03, was switched to daptomycin. Patient is afebrile and here. Not in any distress. Workup showed normal white count of 9.4, normal lactate and procalcitonin of 5. Chest x-ray finding consistent with infectious process/pneumonia, patient oxygen saturation is 92 to 94% on room air with no obvious distress. Discussed with Dr. Gaviria [facility] infectious disease, reviewed history, workup, agreed with continue with daptomycin and antibiotics for community-acquired pneumonia and okay with transfer to [facility] versus staying in this hospital. I have discussed with Dr. Hall hospitalist here, reviewed history, workup and ID recommendations, do not think patient is better served here and recommended transfer to facility with ID services. [facility] has a wait list of transfer, I have discussed with Dr. Lozada ID at [facility] and he is okay with transfer patient to [facility] and would consult with hospitalist service. I have discussed with [facility] ER Dr. Casarez and patient is accepted for transfer. Shared the results of workup and plan of transfer w ith patient which she understands and agrees. Discussed with Dr.: Other (Dr. Gaviria infectious disease [facility], Dr. Lozada infectious disease [facility], Dr. Casarez ER [facility]) Counseled pt/family regarding: lab results, diagnosis, need for follow-up, rad results Medical Desision Making - Discussion of managment Care discussed with:: specialist Reviewed:: Test results Agreed on:: Treatment plan Will see patient: in hospital - Diagnostic Testing Diagnostic test were ordered, analyzed, and reviewed by me: Yes Radiological Interpretation: Reviewed by me, Teleradiologist Report - Risk of complications The pt has a mod risk of morbidity or mortality based on: Need for prescription drug management The pt has a high risk of morbidity or mortality based on: Decision regarding hospitilization or escalation of hosp level of care - Departure Departure Disposition: Transfer Clinical Impression: Pneumonia, Bacteremia Condition: Stable Critical Care Time: No Referrals: SUKH LYNN MD [Primary Care Provider] - Follow up/PCP as directed
[2024-09-12 09:18] LABS: Hematocrit 39.3 % (40.1-51.0); Mean Cell Volume 82.4 fL (79.0-92.2); Mean Corpuscular Hemoglobin 27.3 pg (25.7-32.2); Mean Corpuscular Hgb Concent. 33.1 g/dL (32.3-36.5); Mean Platelet Volume 9.7 fL (9.4-12.4); Platelet Count 224 x10^3/uL (163-337); Red Blood Count 4.77 x10^6/uL (4.63-6.08); Red Cell Distribution Width 14.6 % (11.6-14.4); White Blood Count 9.4 x10^3/uL (4.23-9.07)
--- NOTE | 2024-09-12 09:27 | XRAY ---
CLINICAL HISTORY: Fever COMPARISON: None TECHNIQUE: An X-ray of the chest was performed in AP projection. FINDINGS: Prominent bilateral bronchovascular marking. Bilateral costophrenic angles are hazy and obliterated. Enlarged cardiac shadow. No evidence of pneumothorax. Inhomogenous airspace opacification is seen in the right lung lower zone and left perihilar region, IMPRESSION: 1. Prominent bilateral francia with increased mucosal markings and perihilar opacity in the left lower zone and right infra hilar/lower zone region. 2. Enlarged cardiac shadow. 3. Findings represent congestive changes with infectious/inflammatory disease processes and advise follow-up or CT for further evaluation Electronically Signed by: Vasquez Fuller MD. (09/12/2024 09:22:25 EST)
[2024-09-12 09:32] LABS: ALBUMIN 3.9 g/dL (3.5-5.0); ANION GAP 12.6 MEQ/L (5-15); BILIRUBIN,TOTAL 0.5 mg/dL (0.2-1.3); Creatinine 1 0.73 mg/dL (0.66-1.25); EST GLOMERULAR FILTRATION RATE 106.8 ML/MIN; Potassium 3.8 mmol/L (3.5-5.1); Total Protein 7.1 g/dL (6.3-8.2)
[2024-09-12 10:20] LABS: Eosinophil 1 % (0.8-7.0); Lymphocytes 9 % (21.8-53.1); Metamyelocyte 1 %; Monocyte 5 % (5.3-12.2); Neutrophils 84 % (34.0-67.9); Total Cells Counted 100
[2024-09-12 10:21] LABS: Platelet Estimate NORMAL (NORMAL)
[2024-09-12 13:00] LABS: Appearance Cloudy (Clear); Bacteria Many /HPF (None Seen); Bilirubin Negative (Negative); Blood Small (Negative); Epithelial Cells None Seen /HPF (None Seen); Glucose, Urine Negative (Negative); Hyaline Casts NONE SEEN /LPF (0-2); Ketones Negative (Negative); Leukocyte Esterase Moderate (Negative); Nitrite Positive (Negative); Protein,Urine Dip 100 (Negative); WBC >100 /HPF (0-5)
[2024-09-12] MEDS ORDERED: ROCEPHIN 2 GM/100 ML NACL 2 GM/100 ML IVPB IV ONE (13:14)
[2024-09-12] MEDS: ROCEPHIN 2 GM/100 ML NACL 2 GM/100 ML IVPB IV ONE (13:25)
[2024-09-12 13:30] VITALS: RESP 18
[2024-09-12] MEDS ORDERED: Zithromax 500 MG/ 250 ML NaCl Premix 500 MG/250 ML IVPB IV ONE (13:50)
[2024-09-12] MEDS: Zithromax 500 MG/ 250 ML NaCl Premix 500 MG/250 ML IVPB IV STA (13:59)
[2024-09-12 14:14] LABS: INFLUENZA A NEGATIVE (NEGATIVE); INFLUENZA B NEGATIVE (NEGATIVE); RESPIRATORY SYNCTIAL VIRUS NEGATIVE (NEGATIVE); SARS-CoV-2 Xpert Express NEGATIVE (NEGATIVE)
[2024-09-12 15:10] VITALS: BP 137/72; PULSE 90; O2SAT 93
== END 2024-09-12 15:08 | disposition short-term general hospital (02) ==
LOC: ED 07:50
DX: J18.9 Pneumonia, unspecified organism (principal); R50.9 Fever, unspecified; Z96.651 Presence of right artificial knee joint; D72.819 Decreased white blood cell count, unspecified; R78.81 Bacteremia
CPT/HCPCS: 0241U; 36415; 71045; 80053; 81001; 83605; 84145; 85025; 85652; 87040; 87077; 87086; 87186; 96365; 96367; 99285; J0456; J0696